=== PATIENT | male | born 1955 | race Caucasian/White ===

== ENCOUNTER 2018-03-04 14:55 | Inpatient (IN) | payer OTHER ==
[~2018-03-04] VITALS: Ht 175.3 cm; Wt 112.5 kg
[2018-03-04] MEDS ORDERED: SOD CHLORIDE 0.9% 1,000 ML IV STA (15:44)
[2018-03-04] MEDS ORDERED: ONDANSETRON 4 MG INJ IV STA (15:44)
[2018-03-04] MEDS ORDERED: KETOROLAC 15 MG INJ IV STA (15:44)
[2018-03-04] MEDS ORDERED: NIFE30TA23 PO (16:13)
[2018-03-04] MEDS ORDERED: OLME1TAB83 PO (16:13)
--- NOTE | 2018-03-04 17:10 | ERD ---
ER Documentation Chief Complaint Chief Complaint pt is bib self with c/o abd pain starting a few hrs ago HPI 62-year-old man complains of severe left lower quadrant and periumbilical abdominal pain beginning suddenly this afternoon and similar but worse to previous episode that occurred about 2 weeks ago. 2 weeks ago in his PMDs o ffice he was diagnosed with possible diverticulitis and was given a prescription for levofloxacin and metronidazole which he has been using as prescribed. He states shortly after starting antibiotics his pain resolved until this afternoon. He denies vomiting or diarrhea, no blood per rectum or melena, no chest pain or shortness of breath, no weight loss. ROS All systems reviewed and are negative except as per history of present illness. Medications Home Meds Reported Medications Olmesartan/Hydrochlorothiazide (Olmesartan-Hctz 40-12.5 mg Tab) 1 Each Tablet, 1 TAB PO DAILY 03/04/18 Nifedipine* (Nifedipine ER*) 30 Mg Tablet.sa, 30 MG PO DAILY 03/04/18 Allergies Allergies: Coded Allergies: No Known Allergy (Unverified , 03/04/18) PMhx/Soc Hypertension, obesity Hx Psychiatric Problems: No Hx Miscellaneous Medical Probl: No Hx Alcohol Use: No (OCCASSIONAL BEER) Hx Substance Use: No Hx Tobacco Use: No Smoking Status: Never smoker FmHx Family History: No diabetes Physical Exam Vitals Vital Signs Date Temp Pulse Resp B/P (MAP) Pulse Ox O2 O2 Flow FiO2 Time Delivery Rate 03/04/18 98.9 75 16 157/82 98 15:03 (107) Physical Exam GENERAL: Well-developed, well-nourished, well-hydrated, moderate discomfort, looks nontoxic in appearance HEENT: Moist mucous membranes, pink conjunctiva, no cervical spine tenderness or step-off deformities, no goiter, no jaundice or icterus, extraocular movements intact without pain. No submandibular induration, and no pharyngeal erythema NEURO: Alert and oriented 3, cranial nerves II through XII intact bilaterally, pupils equal round reactive to light, no focal deficits or facial asymmetry, sensation intact distally Strength 5/5 in upper and lower extremities bilaterally CARDIAC: Regular rate and rhythm, no murmurs rubs or gallops LUNGS: Clear bilaterally no wheezing crackles or stridor ABDOMEN: Tenderness over the left lower quadrant, no rigidity or rebound, positive voluntary guarding SKIN: Warm and dry to touch, no abrasions, contusions, or hematomas, no lacerations, no ecchymosis, no target lesions, and without ulcers EXTREMITIES: No clubbing cyanosis or edema, calves are bilaterally symmetrical, no Homans sign, no popliteal cord sign. Distal pulses equal and bilateral PSYCH: Normal affect without agitation or irritability Result Diagram: 03/04/18 1606 03/04/18 1606 Results 24 hrs Laboratory Tests Test 03/04/18 16:06 White Blood Count 10.0 10^3/ul Red Blood Count 4.94 10^6/ul Hemoglobin 13.5 g/dl Hematocrit 41.4 % Mean Corpuscular Volume 83.8 fl Mean Corpuscular Hemoglobin 27.3 pg Mean Corpuscular Hemoglobin Concent 32.6 g/dl Red Cell Distribution Width 14.1 % Platelet Count 198 10^3/UL Mean Platelet Volume 10.6 fl Immature Granulocytes % 0.300 % Neutrophils % 83.9 % Lymphocytes % 9.3 % Monocytes % 6.0 % Eosinophils % 0.4 % Basophils % 0.1 % Nucleated Red Blood Cells % 0.0 /100WBC Immature Granulocytes # 0.030 10^3/ul Neutrophils # 8.3 10^3/ul Lymphocytes # 0.9 10^3/ul Monocytes # 0.6 10^3/ul Eosinophils # 0.0 10^3/ul Basophils # 0.0 10^3/ul Nucleated Red Blood Cells # 0.0 10^3/ul Prothrombin Time 12.6 Sec Prothrombin Time Ratio 1.0 INR International Normalized Ratio 0.93 Activated Partial Thromboplast Time 32.6 Sec Sodium Level 136 mmol/L Potassium Level 4.2 mmol/L Chloride Level 101 mmol/L Carbon Dioxide Level 25 mmol/L Anion Gap 10 Blood Urea Nitrogen 17 mg/dl Creatinine 0.70 mg/dl Est Glomerular Filtrat Rate mL/min > 60 mL/min Glucose Level 119 mg/dl Calcium Level 9.2 mg/dl Total Bilirubin 0.5 mg/dl Direct Bilirubin 0.00 mg/dl Indirect Bilirubin 0.5 mg/dl Aspartate Amino Transf (AST/SGOT) 25 IU/L Alanine Aminotransferase (ALT/SGPT) 22 IU/L Alkaline Phosphatase 76 IU/L Total Protein 7.7 g/dl Albumin 4.4 g/dl Globulin 3.30 g/dl Albumin/Globulin Ratio 1.33 Lipase 169 U/L Current Medications Medications Dose Sig/Gosia Start Time Status Last (Trade) Ordered Route PRN Stop Time Admin Dose Reason Admin Sodium 1,000 ml @ Q1H STAT 03/04/18 DC 03/04/18 Chloride 1,000 mls/hr IV 15:44 16:25 03/04/18 16:43 Ondansetron 4 mg ONCE STAT 03/04/18 DC 03/04/18 HCl (Zofran IV 15:44 16:26 Inj) 03/04/18 15:45 Ketorolac 15 mg ONCE STAT 03/04/18 DC 03/04/18 Tromethamine IV 15:44 16:27 (Toradol) 03/04/18 15:45 Piperacillin 100 ml @ ONCE ONCE 03/04/18 Sod/ 200 mls/hr IVPB 17:30 Tazobactam 03/04/18 17:59 Sod Procedures/MDM IV line was established patient was placed on court recording monitor rhythm strip revealed a sinus rhythm at about 80 bpm with upright P and T waves. Patient was afebrile CT scan of the abdomen and pelvis was performed,IMPRESSION: Left lower quadrant diverticulitis with cluster extraluminal gas bubbles compatible with microperforation. No abscess. No obstruction. Fatty liver. I administered 1 L normal saline IV, Zofran 4 mg IV and Toradol 15 mg IV x1 for pain CBC and electrolytes are normal, liver function tests were normal, coagulation profile was normal. Patient was treated as an outpatient with Flagyl and levofloxacin but unfortunately had recurrence of severe left lower quadrant abdominal pain, CT scan of the abdomen and pelvis reveals acute diverticulitis. I administered Zosyn 3.375 g IV and also spoke to the surgeon on-call Dr. Blue Patient will be admitted to [facility] for continued medical management Departure Diagnosis: Primary Impression: Acute diverticulitis Condition: GERSON Collier MD Mar 04, 2018 17:10
[2018-03-04] MEDS ORDERED: PIPER-TAZO 3.375 GM IV (PMX) 100 ML IVPB ONE (17:30)
[2018-03-04] MEDS ORDERED: ALBUTEROL/IPRATROPIUM (NEB) 3 ML AMP HHN PRN (18:30)
[2018-03-04] MEDS ORDERED: ACETAMINOPHEN 325 MG TAB PO PRN (18:30)
[2018-03-04] MEDS ORDERED: hydrALAzine 20 MG INJ IV PRN (18:30)
[2018-03-04] MEDS ORDERED: ONDANSETRON 4 MG INJ IV PRN (18:30)
[2018-03-04] MEDS ORDERED: morphine 4 MG/ML VIAL IV PRN (18:30)
[2018-03-04] MEDS ORDERED: NITROGLYCERIN (SL) 0.4 MG TAB SL PRN (18:30)
[2018-03-04] MEDS ORDERED: NACL 0.9% 3 ML SYG IV SCH (18:30)
[2018-03-04] MEDS ORDERED: DOCUSATE SODIUM 100 MG CAP PO PRN (18:30)
[2018-03-04] MEDS ORDERED: LORAZEPAM 2 MG INJ IV PRN (18:30)
[2018-03-04] MEDS ORDERED: MAGNESIUM HYDROXIDE 30ML CUP PO PRN (18:30)
[2018-03-04 22:06] VITALS: Ht 175.3 cm; Wt 112.5 kg
[2018-03-04 22:08] VITALS: BP 144/72; PULSE 82; RESP 18
[2018-03-04] MEDS: SOD CHLORIDE 0.9% 1,000 ML IV SCH (22:40)
[2018-03-04] MEDS: PIPER-TAZO 3.375 GM IV (PMX) 100 ML IVPB SCH (23:27)
[2018-03-05 02:00] VITALS: BP 144/72; PULSE 99; RESP 17
[2018-03-05] MEDS: SOD CHLORIDE 0.9% 1,000 ML IV SCH ×3 (04:14→21:16)
--- NOTE | 2018-03-05 05:00 | NUR ---
Pt is alert and oriented x4. Pt is a new admission. Pt complains of pain but he is refusing pain medication. He is ambulating to the restroom, and he is aware he cannot drink or eat anything. Belongings checked and form signed. Vital signs stable. Antibiotics given as ordered. Will continue monitoring pt.
[2018-03-05] MEDS ORDERED: PANTOPRAZOLE (EC) 40 MG TAB PO SCH (06:00)
[2018-03-05] MEDS: PIPER-TAZO 3.375 GM IV (PMX) 100 ML IVPB SCH ×3 (06:42→18:13)
--- NOTE | 2018-03-05 07:14 | HP ---
Date/Time of Note Date/Time of Note DATE: 03/04/18 TIME: 22:00 Assessment/Plan VTE Prophylaxis Risk score (from [facility])>0 risk: 3 SCD applied (from [facility]): Yes Pharmacological prophylaxis: NA/contraindicated Pharm contraindication: other (Microperforation of the colon. Patient may go for surgery) Lines/Catheters IV Catheter Type (from [facility]): Peripheral IV Urinary Cath still in place: No Assessment/Plan Assessment/Plan 1. Diverticulitis with microperforation -Keep n.p.o. with IV fluid -Zosyn -Awaiting surgical eval 2. Hypertension: BP within acceptable range -PRN IV antihypertensives while n.p.o. 3. Obesity with a BMI of 37: Weight reduction advised Result Diagram: 03/05/185 03/05/18 0455 Results 24hrs Laboratory Tests Test 03/04/18 16:06 03/05/18 04:55 White Blood Count 10.0 13.3 #H Red Blood Count 4.94 4.68 L Hemoglobin 13.5 L 12.9 L Hematocrit 41.4 L 39.6 L Mean Corpuscular Volume 83.8 84.6 Mean Corpuscular Hemoglobin 27.3 L 27.6 L Mean Corpuscular Hemoglobin Concent 32.6 32.6 Red Cell Distribution Width 14.1 14.1 Platelet Count 198 183 Mean Platelet Volume 10.6 H 10.9 H Immature Granulocytes % 0.300 0.400 Neutrophils % 83.9 H 87.4 H Lymphocytes % 9.3 L 6.1 L Monocytes % 6.0 6.0 Eosinophils % 0.4 0.0 Basophils % 0.1 0.1 Nucleated Red Blood Cells % 0.0 0.0 Immature Granulocytes # 0.030 0.050 H Neutrophils # 8.3 H 11.6 H Lymphocytes # 0.9 0.8 Monocytes # 0.6 0.8 Eosinophils # 0.0 0.0 Basophils # 0.0 0.0 Nucleated Red Blood Cells # 0.0 0.0 Prothrombin Time 12.6 Prothrombin Time Ratio 1.0 INR International Normalized Ratio 0.93 Activated Partial Thromboplast Time 32.6 Sodium Level 136 136 Potassium Level 4.2 4.1 Chloride Level 101 103 Carbon Dioxide Level 25 22 Anion Gap 10 11 Blood Urea Nitrogen 17 17 Creatinine 0.70 0.79 Est Glomerular Filtrat Rate mL/min > 60 > 60 Glucose Level 119 108 Calcium Level 9.2 8.7 Total Bilirubin 0.5 Direct Bilirubin 0.00 Indirect Bilirubin 0.5 Aspartate Amino Transf (AST/SGOT) 25 Alanine Aminotransferase (ALT/SGPT) 22 Alkaline Phosphatase 76 Total Protein 7.7 Albumin 4.4 Globulin 3.30 H Albumin/Globulin Ratio 1.33 Lipase 169 Free Thyroxine 0.83 Hemoglobin A1c 5.7 Phosphorus Level 3.5 Magnesium Level 1.9 Triglycerides Level 88 Cholesterol Level 142 LDL Cholesterol, Calculated 75 HDL Cholesterol 49 Cholesterol/HDL Ratio 2.8 Thyroid Stimulating Hormone (TSH) 0.654 HPI/ROS Admit Date/Time Admit Date/Time Mar 04, 2018 at 17:24 Hx of Present Illness This is a 62-year-old male with a history of hypertension who presents the ER complaining of abdominal pain. Pain is left-sided and started about a month ago, January 28, 2018 to be exact. At that time he was diagnosed with diverticulitis and took Flagyl and Levaquin, which he finished over a week ago. Pain worsened a few hours prior to arrival to the ER and as such she decided to come for evaluation. He said that he has also occasionally been having pain in the periumbilical area but now it is only left-sided. He denied diarrhea/constipation. He only drinks alcohol occasionally. Head CT shows Left lower quadrant diverticulitis with cluster extraluminal gas bubbles compatible with microperforation. No abscess. No obstruction. PMH/Family/Social Past Medical History Medical History: other (See HPI) Medications Current Medications IV Flush (NS 3 ml) 3 ml PER PROTOCOL IV ; Start 03/04/18 at 18:30 Ondansetron HCl (Zofran Inj) 4 mg Q6H PRN IV NAUSEA AND/OR VOMITING; Start 03/04/18 at 18:30 Acetaminophen (Tylenol Tab) 650 mg Q6H PRN PO PAIN LEVEL 1-3 OR FEVER; Start 03/04/18 at 18:30 Acetaminophen/ Hydrocodone Bitart ([place] (5/325)) 1 tab Q6H PRN PO MODERATE PAIN LEVEL 4-6; Start 03/04/18 at 18:30 Morphine Sulfate (morphine) 2 mg Q4H PRN IV SEVERE PAIN LEVEL 7-10; Start 03/04/18 at 18:30 Docusate Sodium (Colace) 100 mg Q12H PRN PO CONSTIPATION Last administered on 03/05/18at 06:43; Admin Dose 100 MG; Start 03/04/18 at 18:30 Magnesium Hydroxide (Milk Of Mag) 30 ml DAILY PRN PO CONSTIPATION; Start 03/04/18 at 18:30 Pantoprazole (Protonix Tab) 40 mg DAILY@06 PO Last administered on 03/05/18at 06:42; Admin Dose 40 MG; Start 03/05/18 at 06:00 Lorazepam (Ativan) 0.5 mg Q6H PRN IV ANXIETY; Start 03/04/18 at 18:30 Sodium Chloride 1,000 ml @ 100 mls/hr Q10H IV Last administered on 03/04/18at 22:40; Admin Dose 100 MLS/HR; Start 03/04/18 at 18:14 Albuterol/ Ipratropium (Duoneb) 3 ml Q4H RESP THERAPY PRN HHN SHORTNESS OF BREATH; Start 03/04/18 at 18:30 Piperacillin Sod/ Tazobactam Sod 100 ml @ 200 mls/hr Q6 IVPB Last administered on 03/05/18at 06:42; Admin Dose 200 MLS/HR; Start 03/05/18 at 00:00 Hydralazine HCl (Apresoline) 10 mg Q6H PRN IV ELEVATED BLOOD PRESSURE; Start 03/04/18 at 18:30 Nitroglycerin (Nitroglycerin (Sl Tab) 0.4 Mg) 1 tab Q5M PRN SL ANGINA; Start 03/04/18 at 18:30 Nifedipine (Procardia Xl) 30 mg DAILY PO ; Start 03/05/18 at 09:00 Losartan Potassium (Cozaar) 100 mg DAILY PO ; Start 03/05/18 at 09:00 Hydrochlorothiazide (Hydrochlorothiazide) 12.5 mg DAILY PO ; Start 03/05/18 at 09:00 Coded Allergies: No Known Allergy (Unverified , 03/04/18) Past Surgical History Past Surgical Hx: other (See HPI) Family History Significant Family History: no pertinent family hx Social History Alcohol Use: occasionally Smoking Status: Never smoker Drug Use: none Exam/Review of Systems Vital Signs Vitals Vital Signs Date Temp Pulse Resp B/P (MAP) Pulse Ox O2 O2 Flow FiO2 Time Delivery Rate 03/05/18 99.5 04:11 03/05/18 99 17 144/72 94 02:00 (96) 03/04/18 Room Air 21:30 Intake and Output 03/04/18 03/04/18 03/05/18 1515:00 23:00 07:00 IntakeIntake Total 1000 ml 700 ml BalanceBalance 1000 ml 700 ml Exam Constitutional: alert, oriented, well developed Head: normocephalic, atraumatic Respiratory: clear to auscultation, normal air movement Cardiovascular: regular rate and rhythm, nl pulses Gastrointestinal: soft, tender Extremities: normal pulses VIKKI MARQUIS MD Mar 05, 2018 07:14
[2018-03-05 08:09] VITALS: BP 123/69; PULSE 97; RESP 16
--- NOTE | 2018-03-05 08:51 | CONS ---
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 If continues to increase, would rescan. However, if improves clinically and white count normalizes, no reason to rescan This should resolve with conservative therapy Result Diagram: 03/05/18 0455 03/05/18 0455 Results 24hrs Laboratory Tests Test 03/04/18 16:06 03/05/18 04:55 White Blood Count 10.0 13.3 #H Red Blood Count 4.94 4.68 L Hemoglobin 13.5 L 12.9 L Hematocrit 41.4 L 39.6 L Mean Corpuscular Volume 83.8 84.6 Mean Corpuscular Hemoglobin 27.3 L 27.6 L Mean Corpuscular Hemoglobin Concent 32.6 32.6 Red Cell Distribution Width 14.1 14.1 Platelet Count 198 183 Mean Platelet Volume 10.6 H 10.9 H Immature Granulocytes % 0.300 0.400 Neutrophils % 83.9 H 87.4 H Lymphocytes % 9.3 L 6.1 L Monocytes % 6.0 6.0 Eosinophils % 0.4 0.0 Basophils % 0.1 0.1 Nucleated Red Blood Cells % 0.0 0.0 Immature Granulocytes # 0.030 0.050 H Neutrophils # 8.3 H 11.6 H Lymphocytes # 0.9 0.8 Monocytes # 0.6 0.8 Eosinophils # 0.0 0.0 Basophils # 0.0 0.0 Nucleated Red Blood Cells # 0.0 0.0 Prothrombin Time 12.6 Prothrombin Time Ratio 1.0 INR International Normalized Ratio 0.93 Activated Partial Thromboplast Time 32.6 Sodium Level 136 136 Potassium Level 4.2 4.1 Chloride Level 101 103 Carbon Dioxide Level 25 22 Anion Gap 10 11 Blood Urea Nitrogen 17 17 Creatinine 0.70 0.79 Est Glomerular Filtrat Rate mL/min > 60 > 60 Glucose Level 119 108 Calcium Level 9.2 8.7 Total Bilirubin 0.5 Direct Bilirubin 0.00 Indirect Bilirubin 0.5 Aspartate Amino Transf (AST/SGOT) 25 Alanine Aminotransferase (ALT/SGPT) 22 Alkaline Phosphatase 76 Total Protein 7.7 Albumin 4.4 Globulin 3.30 H Albumin/Globulin Ratio 1.33 Lipase 169 Free Thyroxine 0.83 Hemoglobin A1c 5.7 Phosphorus Level 3.5 Magnesium Level 1.9 Triglycerides Level 88 Cholesterol Level 142 LDL Cholesterol, Calculated 75 HDL Cholesterol 49 Cholesterol/HDL Ratio 2.8 Thyroid Stimulating Hormone (TSH) 0.654 Consultation Date/Type/Reason Admit Date/Time Mar 04, 2018 at 17:24 Hx of Present Illness The patient is a 62-year-old male who presented to the ER yesterday with acute onset of left lower quadrant pain. He had similar symptoms in January. At that time, he was seen by his PMD and was started on oral antibiotics. He comp letely resolved. However, he had a meal yesterday and developed significant left lower quadrant pain once again. He denies fevers or chills. He denies nausea or emesis. He denies diarrhea or constipation. He states that his pain is better this morning. 14 point review of systems was performed. Past Medical History Medical History: other (See HPI) Medications Current Medications IV Flush (NS 3 ml) 3 ml PER PROTOCOL IV ; Start 03/04/18 at 18:30 Ondansetron HCl (Zofran Inj) 4 mg Q6H PRN IV NAUSEA AND/OR VOMITING; Start 03/04/18 at 18:30 Acetaminophen/ Hydrocodone Bitart ([place] (5/325)) 1 tab Q6H PRN PO MODERATE PAIN LEVEL 4-6; Start 03/04/18 at 18:30 Morphine Sulfate (morphine) 2 mg Q4H PRN IV SEVERE PAIN LEVEL 7-10; Start 03/04/18 at 18:30 Lorazepam (Ativan) 0.5 mg Q6H PRN IV ANXIETY; Start 03/04/18 at 18:30 Sodium Chloride 1,000 ml @ 100 mls/hr Q10H IV Last administered on 03/04/18at 22:40; Admin Dose 100 MLS/HR; Start 03/04/18 at 18:14 Albuterol/ Ipratropium (Duoneb) 3 ml Q4H RESP THERAPY PRN HHN SHORTNESS OF BREATH; Start 03/04/18 at 18:30 Piperacillin Sod/ Tazobactam Sod 100 ml @ 200 mls/hr Q6 IVPB Last administered on 03/05/18at 06:42; Admin Dose 200 MLS/HR; Start 03/05/18 at 00:00 Hydralazine HCl (Apresoline) 10 mg Q6H PRN IV ELEVATED BLOOD PRESSURE; Start 03/04/18 at 18:30 Hydrochlorothiazide (Hydrochlorothiazide) 12.5 mg DAILY PO ; Start 03/05/18 at 09:00 Pantoprazole (Protonix Iv) 40 mg DAILY@06 IV ; Start 03/06/18 at 06:00 Allergies: Coded Allergies: No Known Allergy (Unverified , 03/04/18) Past Surgical History Past Surgical Hx: no surgical history, other (See HPI) Family History Significant Family History: no pertinent family hx Social History Alcohol Use: occasionally Smoking Status: Never smoker Drug Use: none Exam/Review of Systems Vital Signs Vitals Vital Signs Date Temp Pulse Resp B/P (MAP) Pulse Ox O2 O2 Flow FiO2 Time Delivery Rate 03/05/18 99.8 97 16 123/69 94 08:09 (87) 03/04/18 Room Air 21:30 Intake and Output 03/04/18 03/04/18 03/05/18 1414:59 22:59 06:59 IntakeIntake Total 1000 ml 700 ml BalanceBalance 1000 ml 700 ml Exam Constitutional: alert, oriented, well developed Psych: no complaints, nl mood/affect Head: normocephalic Eyes: nl conjunctiva ENMT: nl external ears & nose, nl lips & teeth, nl nasal mucosa & septum Neck: non-tender Respiratory: clear to auscultation, normal air movement Cardiovascular: regular rate and rhythm, nl pulses Gastrointestinal: soft, other (Nondistended but left lower quadrant tenderness is present) Extremities: normal pulses Neurological: CURRICULUM ASSISTANT II-XII intact, nl mental status, nl speech, nl strength Skin: nl turgor, rash or lesions Lymph: nl lymph nodes Medications Medications Current Medications IV Flush (NS 3 ml) 3 ml PER PROTOCOL IV ; Start 03/04/18 at 18:30 Ondansetron HCl (Zofran Inj) 4 mg Q6H PRN IV NAUSEA AND/OR VOMITING; Start 03/04/18 at 18:30 Acetaminophen/ Hydrocodone Bitart ([place] (5/325)) 1 tab Q6H PRN PO MODERATE PAIN LEVEL 4-6; Start 03/04/18 at 18:30 Morphine Sulfate (morphine) 2 mg Q4H PRN IV SEVERE PAIN LEVEL 7-10; Start 03/04/18 at 18:30 Lorazepam (Ativan) 0.5 mg Q6H PRN IV ANXIETY; Start 03/04/18 at 18:30 Sodium Chloride 1,000 ml @ 100 mls/hr Q10H IV Last administered on 03/04/18at 22:40; Admin Dose 100 MLS/HR; Start 03/04/18 at 18:14 Albuterol/ Ipratropium (Duoneb) 3 ml Q4H RESP THERAPY PRN HHN SHORTNESS OF BREATH; Start 03/04/18 at 18:30 Piperacillin Sod/ Tazobactam Sod 100 ml @ 200 mls/hr Q6 IVPB Last administered on 03/05/18at 06:42; Admin Dose 200 MLS/HR; Start 03/05/18 at 00:00 Hydralazine HCl (Apresoline) 10 mg Q6H PRN IV ELEVATED BLOOD PRESSURE; Start 03/04/18 at 18:30 Hydrochlorothiazide (Hydrochlorothiazide) 12.5 mg DAILY PO ; Start 03/05/18 at 09:00 Pantoprazole (Protonix Iv) 40 mg DAILY@06 IV ; Start 03/06/18 at 06:00 Imaging Imaging Patient: KEVIN STORM : 1955 Age: 62 Sex: M MR #: [id number] DOS: 03/04/18 1544 Ordering MD: GERSON ASHFORD MD Location: E/R Room/Bed: PROCEDURE: CT abdomen and pelvis without contrast. CLINICAL INDICATION: Abdominal Pain TECHNIQUE: CT scan of the abdomen and pelvis without contrast was performed and is reconstructed at 2.5 mm contiguous axial intervals from the dome of the diaphragm to the inferior pubic rami.. The patient was scanned without intravenous contrast. Sagittal and coronal reformatted images were obtained from the axial source images. The calculated radiation dose measures 1515 mGy centimeters. The CTDI measures 22 mGy. Individualized dose optimization technique was used for the performance of this exam. This included 1. Automated exposure control. 2. Adjustment of the mA and / or kV according to the patient's size. 3. Use of iterative reconstructed technique. COMPARISON: None. FINDINGS: The lung bases are clear of any infiltrate or nodule. No effusion is seen. The liver is of normal size and contour with no mass or ductal dilatation. There is fatty infiltration. No gallstones are visualized. No splenic, adrenal or pancreatic abnormalities present. Kidneys are of normal size and contour. No hydronephrosis, calculus or masses seen. Ureters are of normal course and caliber with no stone. No bladder mass or stone is present. Prostate and seminal vesicles are normal. There is no aneurysm. No adenopathy is present. No bowel mass or obstruction is present. The appendix is normal. There is diverticulosis. Noted is pericolic stranding surrounding the junction of the descending colon and the sigmoid colon compatible with diverticulitis. There is a cluster of extraluminal gas bubbles anterior and lateral to the segment. No discrete abscess is present. No ascites or gross pneumoperitoneum is seen. pneumoperitoneum is visualized. Mild senescent degenerative changes are noted in the lumbar spine. IMPRESSION: Left lower quadrant diverticulitis with cluster extraluminal gas bubbles compatible with microperforation. No abscess. No obstruction. Fatty liver. .Andrea Pham MD, MD Date Time Electronically viewed and signed by .Andrea Pham MD, MD on 03/04/2018 16:46 .A/ CC: GERSON ASHFORD MD [id number] HERBER CARUSO MD Mar 05, 2018 08:51
[2018-03-05] MEDS: HYDROCHLOROTHIAZIDE 12.5 MG CAP PO SCH (08:57)
[2018-03-05] MEDS ORDERED: NIFEdipine (XL) 30 MG TAB PO SCH (09:00)
[2018-03-05] MEDS ORDERED: LOSARTAN 50 MG TAB PO SCH (09:00)
--- NOTE | 2018-03-05 12:17 | PN ---
Date/Time of Note Date/Time of Note DATE: 03/05/18 TIME: 12:09 Assessment/Plan VTE Prophylaxis Risk score (from Ns)>0 risk: 4 SCD applied (from Ns): Yes SCD contraindicated: low risk/ambulating Pharmacological prophylaxis: heparin Lines/Catheters IV C[facility]ter Type (from [facility]): Peripheral IV Urinary Cath still in place: No Assessment/Plan Problems: (1) Diverticulitis of large intestine with perforation without bleeding Status: Acute Comment: Is actually subacute he had symptoms treated by his primary care physician Dr. Kiki Méndez 1 month ago. He is on antibiotics now we will trend his white count and recheck his CT scan in the morning. Hopefully this will settle down and can be managed conservatively and not require immediate surgical intervention. (2) Essential hypertension Status: Chronic Comment: maintain drug therapy (3) Obesity Status: Chronic Comment: Calorie restriction diet Qualifiers: Obesity type: due to excess calories Obesity classification: adult class 2 (BMI 35 - 39.9) Serious obesity comorbidity presence: without serious comorbidity Body mass index: BMI 35.0-35.9 Qualified Codes: E66.09 - Other obesity due to excess calories; Z68.35 - Body mass index (BMI) 35.0-35.9, adult Result Diagram: 03/05/18 0455 03/05/18 0455 Results 24hrs Laboratory Tests Test 03/04/18 16:06 03/05/18 04:55 White Blood Count 10.0 13.3 #H Red Blood Count 4.94 4.68 L Hemoglobin 13.5 L 12.9 L Hematocrit 41.4 L 39.6 L Mean Corpuscular Volume 83.8 84.6 Mean Corpuscular Hemoglobin 27.3 L 27.6 L Mean Corpuscular Hemoglobin Concent 32.6 32.6 Red Cell Distribution Width 14.1 14.1 Platelet Count 198 183 Mean Platelet Volume 10.6 H 10.9 H Immature Granulocytes % 0.300 0.400 Neutrophils % 83.9 H 87.4 H Lymphocytes % 9.3 L 6.1 L Monocytes % 6.0 6.0 Eosinophils % 0.4 0.0 Basophils % 0.1 0.1 Nucleated Red Blood Cells % 0.0 0.0 Immature Granulocytes # 0.030 0.050 H Neutrophils # 8.3 H 11.6 H Lymphocytes # 0.9 0.8 Monocytes # 0.6 0.8 Eosinophils # 0.0 0.0 Basophils # 0.0 0.0 Nucleated Red Blood Cells # 0.0 0.0 Prothrombin Time 12.6 Prothrombin Time Ratio 1.0 INR International Normalized Ratio 0.93 Activated Partial Thromboplast Time 32.6 Sodium Level 136 136 Potassium Level 4.2 4.1 Chloride Level 101 103 Carbon Dioxide Level 25 22 Anion Gap 10 11 Blood Urea Nitrogen 17 17 Creatinine 0.70 0.79 Est Glomerular Filtrat Rate mL/min > 60 > 60 Glucose Level 119 108 Calcium Level 9.2 8.7 Total Bilirubin 0.5 Direct Bilirubin 0.00 Indirect Bilirubin 0.5 Aspartate Amino Transf (AST/SGOT) 25 Alanine Aminotransferase (ALT/SGPT) 22 Alkaline Phosphatase 76 Total Protein 7.7 Albumin 4.4 Globulin 3.30 H Albumin/Globulin Ratio 1.33 Lipase 169 Free Thyroxine 0.83 Hemoglobin A1c 5.7 Phosphorus Level 3.5 Magnesium Level 1.9 Triglycerides Level 88 Cholesterol Level 142 LDL Cholesterol, Calculated 75 HDL Cholesterol 49 Cholesterol/HDL Ratio 2.8 Thyroid Stimulating Hormone (TSH) 0.654 Subjective 24 Hr Interval Summary Free Text/Dictation Charming gentleman sitting in bed watching football. He reports he is feeling clinically better Constitutional: no complaints Respiratory: no complaints Cardiovascular: no complaints Gastrointestinal: pain Exam/Review of Systems Vital Signs Vitals Vital Signs Date Temp Pulse Resp B/P (MAP) Pulse Ox O2 O2 Flow FiO2 Time Delivery Rate 03/05/18 99.8 97 16 123/69 94 08:09 (87) 03/04/18 Room Air 21:30 Intake and Output 03/04/18 03/04/18 03/05/18 1414:59 22:59 06:59 IntakeIntake Total 1000 ml 700 ml BalanceBalance 1000 ml 700 ml Exam Constitutional: alert, oriented Respiratory: clear to auscultation, normal air movement Cardiovascular: regular rate and rhythm, nl pulses Gastrointestinal: soft, tender (Left lower quadrant) Medications Medications Current Medications IV Flush (NS 3 ml) 3 ml PER PROTOCOL IV ; Start 03/04/18 at 18:30 Ondansetron HCl (Zofran Inj) 4 mg Q6H PRN IV NAUSEA AND/OR VOMITING; Start 03/04/18 at 18:30 Acetaminophen/ Hydrocodone Bitart ([place] (5/325)) 1 tab Q6H PRN PO MODERATE PAIN LEVEL 4-6; Start 03/04/18 at 18:30 Morphine Sulfate (morphine) 2 mg Q4H PRN IV SEVERE PAIN LEVEL 7-10; Start 03/04/18 at 18:30 Lorazepam (Ativan) 0.5 mg Q6H PRN IV ANXIETY; Start 03/04/18 at 18:30 Sodium Chloride 1,000 ml @ 100 mls/hr Q10H IV Last administered on 03/05/18at 10:44; Admin Dose 100 MLS/HR; Start 03/04/18 at 18:14 Albuterol/ Ipratropium (Duoneb) 3 ml Q4H RESP THERAPY PRN HHN SHORTNESS OF BREATH; Start 03/04/18 at 18:30 Piperacillin Sod/ Tazobactam Sod 100 ml @ 200 mls/hr Q6 IVPB Last administered on 03/05/18at 06:42; Admin Dose 200 MLS/HR; Start 03/05/18 at 00:00 Hydralazine HCl (Apresoline) 10 mg Q6H PRN IV ELEVATED BLOOD PRESSURE; Start 03/04/18 at 18:30 Hydrochlorothiazide (Hydrochlorothiazide) 12.5 mg DAILY PO Last administered on 03/05/18at 08:57; Admin Dose 12.5 MG; Start 03/05/18 at 09:00 Pantoprazole (Protonix Iv) 40 mg DAILY@06 IV ; Start 03/06/18 at 06:00 BUZZ KHAN MD Mar 05, 2018 12:17
[2018-03-05] MEDS ORDERED: IOHEXOL 14.3 MG(I)/ML (ADULT) BTL PO ONE (12:30)
[2018-03-05 14:33] VITALS: BP 131/60; PULSE 90; RESP 18
--- NOTE | 2018-03-05 18:30 | NUR ---
Patient with stable vitals throughout shift. Running low grade fevers but managed with cooling measures. No c/o chills, body aches, N/V, etc. Pt c/o ongoing pain in abd but says tolerable and not needing pain medication. To have repeat CT tomorrow. Will continue to monitor and endorse to next shift.
[2018-03-05 20:00] VITALS: BP 135/70; PULSE 89; RESP 18
[2018-03-06] MEDS: SOD CHLORIDE 0.9% 1,000 ML IV SCH ×3 (00:14→20:40)
[2018-03-06] MEDS: PIPER-TAZO 3.375 GM IV (PMX) 100 ML IVPB SCH ×3 (00:25→12:08)
[2018-03-06] MEDS: HYDROCODONE/APAP (5/325) TAB PO PRN ×2 (00:29→15:11)
[2018-03-06 02:00] VITALS: BP 111/69; PULSE 82; RESP 15
[2018-03-06] MEDS: PANTOPRAZOLE 40 MG INJ IV SCH (06:18)
--- NOTE | 2018-03-06 06:29 | NUR ---
Pt is alert and oriented x4. He complained of pain; [place] given as ordered. Vital signs stable; no fevers throughout the night. He is ambulating to the restroom, and he is aware he cannot drink or eat anything. Vital signs stable. Antibiotics given as ordered as well. No other acute events overnight. CT scan to be done this morning. Will continue monitoring pt.
[2018-03-06] MEDS: HYDROCHLOROTHIAZIDE 12.5 MG CAP PO SCH (08:25)
[2018-03-06 08:42] VITALS: BP 124/64; PULSE 86; RESP 18
--- NOTE | 2018-03-06 09:00 | NUR ---
PT EVALUATION NOTE: Patient is a 62 year old male admitted to [facility] after presenting to the ER on 03/04/18 complaining of abdominal pain. PMH: HTN, obesity PLOF: Patient lives with his family in a house. Prior to hospitalization, patient was independent with household and community ambulation without an assistive device and was able to perform ADLs independently. 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 CLOF: Aisha PAINTING cleared patient for PT evaluation. Received patient sitting up in bed, denies pain. Patient educated in safety awareness, fall prevention and purpose of PT evaluation. Patient able to demonstrate independent bed mobility and transfers without an assistive device. Patient able to ambulate 300 feet independently without an assistive device with steady, stable gait. Patient denied dizziness during ambulation. Patient returned to bed after ambulation, all needs met, call light within reach, no signs of distress. Asiha PAINTING notified of patient's status at the end of the session. PT RECOMMENDATION: Skilled PT intervention is not indicated as patient is independent with all functional mobility (bed mobility, transfers and ambulation without an assistive device). Anticipate discharge home with family once cleared by MD, no DME needed. Patient discharged from PT, Aisha PAINTING notified. Patient is cleared to ambulate with nursing staff.
[2018-03-06] MEDS ORDERED: SOD CHLORIDE 0.9% 100 ML ONE (11:37)
[2018-03-06] MEDS ORDERED: IOHEXOL 300MG/ML 150 ML BTL ONE (11:37)
--- NOTE | 2018-03-06 11:56 | NUR ---
Procedure Ordered: CT ABD/PEL W/CONTRAST Reason for Exam Today:DIVERTICULITIS WITH MICROPERFORATION Previous Exams: Allergies:NKDA Current Medications Taken: Glucophage ( ) Metformin ( ) Previous reaction to contrast media: Yes ( ) No ( X) : Yes ( ) No (X ) Asthma: Yes ( ) No ( X) Diabetes: Yes ( ) No (X ) Myeloma: Yes ( ) No ( X) Heart Disease: Yes (X ) No ( ) Cardiac Disease: Yes (X ) No ( ) Kidney Disease: Yes ( ) No ( X) Vascular Disease: Yes ( ) No ( X) Patient Teaching done: Yes ( ) No ( ) Boilers And Pressure Vessels Inspector Used: Yes ( X) No ( ) Name of Boilers And Pressure Vessels Inspector: Language Used: As part of the test requested by your doctor, contrast media may be injected into your vein while the x-rays are being taken. Occasionally, reactions from IV contrast may occur. The physician and staff of this hospital are trained to treat these reactions. Select the type of Contrast that will be given to patient: Isovue 300 ( ) Isovue 370 ( ) Visipaque ( ) Cystografin ( ) OMNIPAQUE 300 (X) Gastrographin (X ) Redi-cat ( ) Volumen ( ) Amount of contrast to be given: 100CC IV (X ) PO ( ) Date given:03/06/18 Lab Values: BUN: 17 Creatinine:0.79 Reason why contrast cannot be given: Location of patient pre-procedure:[facility]248 Location of patient post procedure:[facility]248 PT TOLERATED IV CONTRAST INJECTION WELL
[2018-03-06 15:21] VITALS: BP 132/70; PULSE 83; RESP 18
--- NOTE | 2018-03-06 16:19 | PN ---
Date/Time of Note Date/Time of Note DATE: 03/06/18 TIME: 16:18 Assessment/Plan VTE Prophylaxis Risk score (from Ns)>0 risk: 4 SCD applied (from Ns): Yes Pharmacological prophylaxis: NA/contraindicated Pharm contraindication: low risk/ambulating Lines/Catheters IV [facility]from [facility]): Peripheral IV Urinary Cath still in place: No Assessment/Plan Hospital Course SUBJECTIVE: Had abdominal pain earlier today. Denies any abdominal pain at this time. OBJECTIVE: Physical Exam General: Obese, 62 year-old male lying in bed in no apparent distress. HEENT: Normocephalic, atraumatic. Eyes: Anicteric sclerae, conjunctivae clear. ENT: Nasal septum midline, oral mucosa moist. Neck supple, no JVD noticed. Respiratory: Bilaterally clear breath sounds. No use of accessory muscles of respiration. No adventitious breath sounds. Cardiovascular: S1, S2 heard. Regular rate and rhythm. Abdomen: Left lower quadrant tenderness. Bowel sounds positive in all 4 quadrants. Genitourinary: Deferred. Extremities: No cyanosis, no clubbing, no edema. Peripheral pulses palpable. Neurologic: Cranial nerves II through XII grossly intact. The patient is awake, alert, and oriented. Skin: Normal skin turgor. No skin rashes. Labs & Vitals per chart ASSESSMENT & PLAN 62-year-old male with comorbidities including hypertension and obesity who came to the emergency room with chief complaint of abdominal pain with CT scan of the abdomen and pelvis showing left lower quadrant diverticulitis with extra luminal gas bubbles compatible with microperforation. The patient was admitted to inpatient setting for further treatment and evaluation. 1. Acute diverticulitis with microperforation. -Continue antimicrobials including coverage for anaerobes. -Status post evaluation by general surgery. -Continue conservative management. 2. Essential hypertension. -Continue antihypertensives 3. Obesity. -BMI 36 kg/m. -Low calorie diet. 4. Fluids. -N.p.o. -Continue IV fluids. 5. DVT prophylaxis -Bilateral SCDs. 6. Plan. -Continue antibiotics. -Changed to carbapenem on 03/06/2018. -Continue pain control. -Continue n.p.o. The patient was in collaboration with Dr. Sanchez. Plan of care was explained to the patient. Result Diagram: 03/06/1851103/06/18 0512 Results 24hrs Laboratory Tests Test 1/21/19 05:12 White Blood Count 10.6 # Red Blood Count 4.46 L Hemoglobin 12.5 L Hematocrit 38.0 L Mean Corpuscular Volume 85.2 Mean Corpuscular Hemoglobin 28.0 L Mean Corpuscular Hemoglobin Concent 32.9 Red Cell Distribution Width 14.2 Platelet Count 167 Mean Platelet Volume 10.8 H Immature Granulocytes % 0.400 Neutrophils % 77.6 H Lymphocytes % 13.1 L Monocytes % 8.3 Eosinophils % 0.5 Basophils % 0.1 Nucleated Red Blood Cells % 0.0 Immature Granulocytes # 0.040 H Neutrophils # 8.2 H Lymphocytes # 1.4 Monocytes # 0.9 Eosinophils # 0.1 Basophils # 0.0 Nucleated Red Blood Cells # 0.0 Sodium Level 134 L Potassium Level 3.7 Chloride Level 101 Carbon Dioxide Level 22 Anion Gap 11 Blood Urea Nitrogen 15 Creatinine 0.76 Est Glomerular Filtrat Rate mL/min > 60 Glucose Level 83 Calcium Level 8.5 Exam/Review of Systems Vital Signs Vitals Vital Signs Date Temp Pulse Resp B/P (MAP) Pulse Ox O2 O2 Flow FiO2 Time Delivery Rate 03/06/18 98.9 83 18 132/70 94 Room Air 15:21 (90) Intake and Output 03/05/18 03/05/18 03/06/18 1515:00 23:00 07:00 IntakeIntake Total 600 ml 1200 ml 900 ml BalanceBalance 600 ml 1200 ml 900 ml Medications Medications Current Medications IV Flush (NS 3 ml) 3 ml PER PROTOCOL IV ; Start 03/04/18 at 18:30 Ondansetron HCl (Zofran Inj) 4 mg Q6H PRN IV NAUSEA AND/OR VOMITING; Start 03/04/18 at 18:30 Acetaminophen/ Hydrocodone Bitart ([place] (5/325)) 1 tab Q6H PRN PO MODERATE PAIN LEVEL 4-6 Last administered on 03/06/18at 15:11; Admin Dose 1 TAB; Start 03/04/18 at 18:30 Morphine Sulfate (morphine) 2 mg Q4H PRN IV SEVERE PAIN LEVEL 7-10; Start 03/04/18 at 18:30 Lorazepam (Ativan) 0.5 mg Q6H PRN IV ANXIETY; Start 03/04/18 at 18:30 Sodium Chloride 1,000 ml @ 100 mls/hr Q10H IV Last administered on 03/06/18at 09:11; Admin Dose 100 MLS/HR; Start 03/04/18 at 18:14 Albuterol/ Ipratropium (Duoneb) 3 ml Q4H RESP THERAPY PRN HHN SHORTNESS OF BREATH; Start 03/04/18 at 18:30 Hydralazine HCl (Apresoline) 10 mg Q6H PRN IV ELEVATED BLOOD PRESSURE; Start 03/04/18 at 18:30 Hydrochlorothiazide (Hydrochlorothiazide) 12.5 mg DAILY PO Last administered on 03/06/18at 08:25; Admin Dose 12.5 MG; Start 03/05/18 at 09:00 Pantoprazole (Protonix Iv) 40 mg DAILY@06 IV Last administered on 03/06/18at 06:18; Admin Dose 40 MG; Start 03/06/18 at 06:00 Meropenem/Sodium Chloride 50 ml @ 100 mls/hr Q8 IVPB ; Start 03/06/18 at 16:00 SHON BERRIOS NP Mar 06, 2018 16:19
[2018-03-06] MEDS: MEROPENEM 1 GM/50ML(PMX) 50 ML IVPB SCH ×2 (16:29→22:37)
--- NOTE | 2018-03-06 18:11 | NUR ---
Pt with stable vitals throughout shift. Had repeat CT scan done and c/o abd pain 07/24 after consuming PO contrast but reports symptoms improved after PRN norco given. Remains NPO. Ambulating throughout the day. Will continue to monitor and endorse to next shift
[2018-03-06 20:00] VITALS: BP 128/66; PULSE 81; RESP 18
[2018-03-07 02:00] VITALS: BP 126/66; PULSE 78; RESP 18
--- NOTE | 2018-03-07 05:52 | PN ---
Date/Time of Note Date/Time of Note DATE: 03/07/18 TIME: 05:52 Assessment/Plan VTE Prophylaxis Risk score (from Ns)>0 risk: 6 SCD applied (from Ns): Yes Pharmacological prophylaxis: NA/contraindicated Pharm contraindication: low risk/ambulating Lines/Catheters IV Catheter Type (from [facility]): Peripheral IV Urinary Cath still in place: No Assessment/Plan Hospital Course SUBJECTIVE: Denies any abdominal pain at this time. OBJECTIVE: Physical Exam General: Obese, 62 year-old male lying in bed in no apparent distress. HEENT: Normocephalic, atraumatic. Eyes: Anicteric sclerae, conjunctivae clear. ENT: Nasal septum midline, oral mucosa moist. Neck supple, no JVD noticed. Respiratory: Bilaterally clear breath sounds. No use of accessory muscles of respiration. No adventitious breath sounds. Cardiovascular: S1, S2 heard. Regular rate and rhythm. Abdomen: Left lower quadrant tenderness. Bowel sounds positive in all 4 quadrants. Genitourinary: Deferred. Extremities: No cyanosis, no clubbing, no edema. Peripheral pulses palpable. Neurologic: Cranial nerves II through XII grossly intact. The patient is awake, alert, and oriented. Skin: Normal skin turgor. No skin rashes. Labs & Vitals per chart ASSESSMENT & PLAN 62-year-old male with comorbidities including hypertension and obesity who came to the emergency room with chief complaint of abdominal pain with CT scan of the abdomen and pelvis showing left lower quadrant diverticulitis with extra luminal gas bubbles compatible with microperforation. The patient was admitted to inpatient setting for further treatment and evaluation. 1. Acute diverticulitis with microperforation. -Continue antimicrobials including coverage for anaerobes. -Status post evaluation by general surgery. -Continue conservative management. 2. Essential hypertension. -Continue antihypertensives 3. Obesity. -BMI 36 kg/m. -Low calorie diet. 4. Fluids. -N.p.o. -Continue IV fluids. 5. DVT prophylaxis -Bilateral SCDs. 6. Plan. -Continue antibiotics. -Changed to carbapenem on 03/06/2018. -Continue pain control. -Continue n.p.o. The patient was in collaboration with Dr. Sanchez. Plan of care was explained to the patient. Result Diagram: 03/06/1851103/06/18511 Exam/Review of Systems Vital Signs Vitals Vital Signs Date Temp Pulse Resp B/P (MAP) Pulse Ox O2 O2 Flow FiO2 Time Delivery Rate 03/07/18 98.9 78 18 126/66 93 02:00 (86) 03/06/18 Room Air 15:21 Intake and Output 03/06/18 03/06/18 03/07/18 1515:00 23:00 07:00 IntakeIntake Total 300 ml 1050 ml 850 ml BalanceBalance 300 ml 1050 ml 850 ml Medications Medications Current Medications IV Flush (NS 3 ml) 3 ml PER PROTOCOL IV ; Start 03/04/18 at 18:30 Ondansetron HCl (Zofran Inj) 4 mg Q6H PRN IV NAUSEA AND/OR VOMITING; Start at 18:30 Acetaminophen/ Hydrocodone Bitart ([place] (5/325)) 1 tab Q6H PRN PO MODERATE PAIN LEVEL 4-6 Last administered on 03/06/18at 15:11; Admin Dose 1 TAB; Start 03/04/18 at 18:30 Morphine Sulfate (morphine) 2 mg Q4H PRN IV SEVERE PAIN LEVEL 7-10; Start 03/04/18 at 18:30 Lorazepam (Ativan) 0.5 mg Q6H PRN IV ANXIETY; Start 03/04/18 at 18:30 Sodium Chloride 1,000 ml @ 100 mls/hr Q10H IV Last administered on 03/06/18at 20:40; Admin Dose 100 MLS/HR; Start 03/04/18 at 18:14 Albuterol/ Ipratropium (Duoneb) 3 ml Q4H RESP THERAPY PRN HHN SHORTNESS OF BREATH; Start 03/04/18 at 18:30 Hydralazine HCl (Apresoline) 10 mg Q6H PRN IV ELEVATED BLOOD PRESSURE; Start 03/04/18 at 18:30 Hydrochlorothiazide (Hydrochlorothiazide) 12.5 mg DAILY PO Last administered on 03/06/18at 08:25; Admin Dose 12.5 MG; Start 03/05/18 at 09:00 Pantoprazole (Protonix Iv) 40 mg DAILY@06 IV Last administered on 03/06/18at 06:18; Admin Dose 40 MG; Start 03/06/18 at 06:00 Meropenem/Sodium Chloride 50 ml @ 100 mls/hr Q8 IVPB Last administered on 03/06/18at 22:37; Admin Dose 100 MLS/HR; Start 03/06/18 at 16:00 SHON BERRIOS NP Mar 07, 2018 05:52
[2018-03-07] MEDS: MEROPENEM 1 GM/50ML(PMX) 50 ML IVPB SCH ×3 (06:00→21:23)
[2018-03-07] MEDS: PANTOPRAZOLE 40 MG INJ IV SCH (06:00)
--- NOTE | 2018-03-07 06:31 | NUR ---
pt denies abdominal pain. no nausea and vomiting noted. kept on npo
[2018-03-07] MEDS: SOD CHLORIDE 0.9% 1,000 ML IV SCH ×3 (07:42→20:10)
[2018-03-07 08:00] VITALS: BP 123/65; PULSE 84; RESP 18
[2018-03-07] MEDS: HYDROCHLOROTHIAZIDE 12.5 MG CAP PO SCH (09:06)
--- NOTE | 2018-03-07 14:08 | PN ---
Date/Time of Note Date/Time of Note DATE: 03/07/18 TIME: 14:06 Assessment/Plan Lines/Catheters IV Catheter Type (from Nrs): Peripheral IV Wise in Place (from Nrs): No Assessment/Plan Assessment/Plan Improving diverticulitis despite CT findings Patient has been afebrile and has a normal white count since admission. Abdominal pain improving. New antibiotics. Would not rescan unless clinically worsens Subjective 24 Hr Interval Summary Constitutional: other (Feeling better) Feeding: clear Pain Control: mild Exam/Review of Systems Vital Signs Vitals Vital Signs Date Temp Pulse Resp B/P (MAP) Pulse Ox O2 O2 Flow FiO2 Time Delivery Rate 03/07/18 98.6 84 18 123/65 96 08:00 (84) 03/06/18 Room Air 15:21 Intake and Output 03/06/18 03/06/18 03/07/18 1515:00 23:00 07:00 IntakeIntake Total 300 ml 1050 ml 900 ml BalanceBalance 300 ml 1050 ml 900 ml Exam Constitutional: alert, oriented, well developed Respiratory: clear to auscultation Cardiovascular: regular rate and rhythm Gastrointestinal: soft, other (Left lower quadrant tenderness) Results Free Text/Dictation Patient: KEVIN STORM : 1955 Age: 62 Sex: M MR #: [id number] DOS: 03/06/18 0700 Ordering MD: BUZZ KHAN MD Location: [facility] Room/Bed: [facility] PROCEDURE: CT Abdomen and Pelvis with contrast. CLINICAL INDICATION: Diverticulitis with microperforation. TECHNIQUE: CT scan of the abdomen and pelvis with contrast was performed on a multi-detector high-resolution CT scanner. The patient was scanned following the uncomplicated intravenous administration of 100 cc of Omnipaque 300 IV contrast. Coronal and sagittal reformatted images were obtained from the axial source images. DICOM images are available. CTDI equals 22.85 mGy, and DLP equals 1456.33 mGy-cm. One or more of the following dose reduction techniques were used: - Automated exposure control. - Adjustment of the mA and/or kV according to patient size. - Use of iterative reconstruction technique. COMPARISON: CT 03/04/2018 FINDINGS: Lower thorax: Bibasilar atelectasis. Liver: Normal. Patent portal vein. Biliary: Normal gallbladder. No biliary dilatation. Pancreas: Normal. Spleen: Normal. Adrenal Glands: Normal. Genitourinary: Benign appearing 1.4 cm cyst in the upper pole of right kidney. No hydronephrosis. Bladder is suboptimally distended and unremarkable. Gastrointestinal: Stomach is decompressed. Inflammatory changes involving left lower quadrant and left pelvis appears slightly progressed compared to 03/04/2018 CT with additional foci of extraluminal air and phlegmonous changes. There is associated reactive thickening of the adjacent peritoneum. Currently there is no definitive walled off fluid collection to suggest abscess. There is no definitive intraluminal abscess. There is moderate wall thickening and peripheral fat stranding of the adjacent short segment small bowel consistent with secondary enteritis. Lymph nodes: Normal. Vascular: Mildly calcified normal caliber abdominal aorta. Peritoneum/mesentery: As above. Reproductive organs: Normal. Musculoskeletal: Multilevel degenerative disc disease more prominent at the level of the L3-L4 and L4-L5. Abdominal wall: Normal IMPRESSION: 1. Slight progression of the inflammatory changes involving the left lower quadrant and left pelvis due to sigmoid diverticulitis. There is interval increase in phlegmonous changes with additional extraluminal air when comparing to earlier CT. Currently there is no definitive walled off intra-abdominal or intramural fluid collection to suggest abscess. 2. Moderate wall thickening and peripheral fat stranding of the adjacent short segment small bowel consistent with secondary enteritis. 3. No evidence of bowel obstruction with oral contrast travels to the distal rectosigmoid colon. RPTAT: QQ Physician Emerald Date Time Electronically viewed and signed by Physician Emerald on 03/06/2018 12:52 Result Diagram: 03/07/18 0609 03/07/18 0609 HERBER CARUSO MD Mar 07, 2018 14:08
[2018-03-07 14:42] VITALS: BP 133/64; PULSE 75; RESP 16
--- NOTE | 2018-03-07 18:56 | NUR ---
All needs met.no acute events.patient did not ask any pain medication today.he said''feel much better today,no abdominal pain''still he is npo.call light within reach.he is resting comfortably in bed.
[2018-03-07 20:00] VITALS: BP 130/69; PULSE 75; RESP 18
[2018-03-08 02:00] VITALS: BP 120/65; PULSE 63; RESP 18
--- NOTE | 2018-03-08 06:19 | NUR ---
No acute changes overnight. Vital signs remained stable, pt denies pain, SOB, or any discomfort. Pt stayed up most of the night watching television. All needs tended to. Will endorse plan of care to AM shift.
[2018-03-08] MEDS: PANTOPRAZOLE 40 MG INJ IV SCH (06:51)
[2018-03-08] MEDS: MEROPENEM 1 GM/50ML(PMX) 50 ML IVPB SCH ×3 (06:51→22:01)
[2018-03-08] MEDS: SOD CHLORIDE 0.9% 1,000 ML IV SCH ×2 (06:51→22:01)
[2018-03-08 08:02] VITALS: BP 124/59; PULSE 72; RESP 16
--- NOTE | 2018-03-08 08:27 | PN ---
Date/Time of Note Date/Time of Note DATE: 03/08/18 TIME: 08:27 Assessment/Plan VTE Prophylaxis Risk score (from Ns)>0 risk: 3 SCD applied (from [facility]): Yes Pharmacological prophylaxis: NA/contraindicated, other Pharm contraindication: low risk/ambulating Lines/Catheters IV Catheter Type (from [facility]): Peripheral IV Urinary Cath still in place: No Assessment/Plan Hospital Course SUBJECTIVE: Denies any abdominal pain at this time. OBJECTIVE: Physical Exam General: Obese, 62 year-old male lying in bed in no apparent distress. HEENT: Normocephalic, atraumatic. Eyes: Anicteric sclerae, conjunctivae clear. ENT: Nasal septum midline, oral mucosa moist. Neck supple, no JVD noticed. Respiratory: Bilaterally clear breath sounds. No use of accessory muscles of respiration. No adventitious breath sounds. Cardiovascular: S1, S2 heard. Regular rate and rhythm. Abdomen: Left lower quadrant tenderness. Bowel sounds positive in all 4 quadrants. Genitourinary: Deferred. Extremities: No cyanosis, no clubbing, no edema. Peripheral pulses palpable. Neurologic: Cranial nerves II through XII grossly intact. The patient is awake, alert, and oriented. Skin: Normal skin turgor. No skin rashes. Labs & Vitals per chart ASSESSMENT & PLAN 62-year-old male with comorbidities including hypertension and obesity who came to the emergency room with chief complaint of abdominal pain with CT scan of the abdomen and pelvis showing left lower quadrant diverticulitis with extra luminal gas bubbles compatible with microperforation. The patient was admitted to inpatient setting for further treatment and evaluation. 1. Acute diverticulitis with microperforation. -Continue antimicrobials including coverage for anaerobes. -Status post evaluation by general surgery. -Continue conservative management. 2. Essential hypertension. -Continue antihypertensives 3. Obesity. -BMI 36 kg/m. -Low calorie diet. 4. Fluids. -N.p.o. -Continue IV fluids. 5. DVT prophylaxis -Bilateral SCDs. 6. Plan. -Continue antibiotics. -Changed to carbapenem on 03/06/2018. -Continue pain control. -Continue n.p.o. -Plan is to discharge the patient home on IV antibiotics after initiating the patient on a diet as clinically appropriate. The patient was in collaboration with Dr. Sanchez. Plan of care was explained to the patient. Result Diagram: 03/08/18 0508 03/08/18 0508 Results 24hrs Laboratory Tests Test 03/08/18 05:08 White Blood Count 6.6 # Red Blood Count 4.51 L Hemoglobin 12.6 L Hematocrit 38.3 L Mean Corpuscular Volume 84.9 Mean Corpuscular Hemoglobin 27.9 L Mean Corpuscular Hemoglobin Concent 32.9 Red Cell Distribution Width 13.4 Platelet Count 191 Mean Platelet Volume 10.6 H Immature Granulocytes % 0.300 Neutrophils % 71.0 Lymphocytes % 18.1 Monocytes % 8.3 Eosinophils % 2.1 Basophils % 0.2 Nucleated Red Blood Cells % 0.0 Immature Granulocytes # 0.020 Neutrophils # 4.7 Lymphocytes # 1.2 Monocytes # 0.6 Eosinophils # 0.1 Basophils # 0.0 Nucleated Red Blood Cells # 0.0 Sodium Level 137 Potassium Level 3.9 Chloride Level 101 Carbon Dioxide Level 23 Anion Gap 13 Blood Urea Nitrogen 14 Creatinine 0.66 Est Glomerular Filtrat Rate mL/min > 60 Glucose Level 78 Calcium Level 9.0 Phosphorus Level 3.4 Magnesium Level 2.1 Exam/Review of Systems Vital Signs Vitals Vital Signs Date Temp Pulse Resp B/P (MAP) Pulse Ox O2 O2 Flow FiO2 Time Delivery Rate 03/08/18 98.1 72 16 124/59 95 08:02 (80) 03/06/18 Room Air 15:21 Intake and Output 03/07/18 03/07/18 03/08/18 1515:00 23:00 07:00 IntakeIntake Total 250 ml 1050 ml 900 ml BalanceBalance 250 ml 1050 ml 900 ml Medications Medications Current Medications IV Flush (NS 3 ml) 3 ml PER PROTOCOL IV ; Start 03/04/18 at 18:30 Ondansetron HCl (Zofran Inj) 4 mg Q6H PRN IV NAUSEA AND/OR VOMITING; Start 03/04/18 at 18:30 Acetaminophen/ Hydrocodone Bitart ([place] (5/325)) 1 tab Q6H PRN PO MODERATE PAIN LEVEL 4-6 Last administered on 03/06/18at 15:11; Admin Dose 1 TAB; Start 03/04/18 at 18:30 Morphine Sulfate (morphine) 2 mg Q4H PRN IV SEVERE PAIN LEVEL 7-10; Start 03/04/18 at 18:30 Lorazepam (Ativan) 0.5 mg Q6H PRN IV ANXIETY; Start 03/04/18 at 18:30 Sodium Chloride 1,000 ml @ 100 mls/hr Q10H IV Last administered on 03/08/18at 06:51; Admin Dose 100 MLS/HR; Start 03/04/18 at 18:14 Albuterol/ Ipratropium (Duoneb) 3 ml Q4H RESP THERAPY PRN HHN SHORTNESS OF BREATH; Start 03/04/18 at 18:30 Hydralazine HCl (Apresoline) 10 mg Q6H PRN IV ELEVATED BLOOD PRESSURE; Start 03/04/18 at 18:30 Hydrochlorothiazide (Hydrochlorothiazide) 12.5 mg DAILY PO Last administered on 03/07/18at 09:06; Admin Dose 12.5 MG; Start 03/05/18 at 09:00 Pantoprazole (Protonix Iv) 40 mg DAILY@06 IV Last administered on 03/08/18 06:51; Admin Dose 40 MG; Start 03/06/18 at 06:00 Meropenem/Sodium Chloride 50 ml @ 100 mls/hr Q8 IVPB Last administered on 03/08/18 06:51; Admin Dose 100 MLS/HR; Start 03/06/18 at 16:00 SHON BERRIOS NP Mar 08, 2018 08:27
[2018-03-08] MEDS: HYDROCHLOROTHIAZIDE 12.5 MG CAP PO SCH (09:24)
[2018-03-08 15:02] VITALS: BP 144/83; PULSE 83; RESP 16
--- NOTE | 2018-03-08 16:24 | NUR ---
RN NOTES Spoke with ER Charge nurse for midline insertion and was told that nobody is available to do it right now, referred to ICU, spoke with Oliver but as per Oliver Charge Nurse, Tana who is trained is also unavailable , referred again to Nikhil of PACU, spoke with Nikhil and said that he will try to do it later today.
--- NOTE | 2018-03-08 18:34 | NUR ---
RN NOTES No apparent change of status all throughout the shift. Patient remained alert and oriented, denies any pain upon each assessment. Spoke with GENERAL MERCHANDISE MANAGER Zaid, was made aware that patient's request to know when will the patient be able to eat. As per GENERAL MERCHANDISE MANAGER, since the patient has microperforation noted on the CT scan result , it is necessary for it to heal and then patient can start on a diet. verbalized understanding. Still awaiting for Midline placement. Will endorse to power and recovery shift engineer for continued follow up.
[2018-03-08 20:00] VITALS: BP 146/70; PULSE 69; RESP 18
--- NOTE | 2018-03-08 23:00 | NUR ---
pt for insertion of midline. charge nurse called for assistance but no available nurse to do the midline insertion. pt made aware. will endorse to dayshift nurse
[2018-03-09 02:00] VITALS: BP 134/68; PULSE 66; RESP 18
[2018-03-09] MEDS: PANTOPRAZOLE 40 MG INJ IV SCH (05:39)
[2018-03-09] MEDS: MEROPENEM 1 GM/50ML(PMX) 50 ML IVPB SCH ×3 (05:39→22:07)
--- NOTE | 2018-03-09 06:55 | NUR ---
kept on npo. no abdominal pain noted, no nausea and vomiting noted
[2018-03-09 07:55] VITALS: BP 138/79; PULSE 71; RESP 18
[2018-03-09] MEDS: SOD CHLORIDE 0.9% 1,000 ML IV SCH ×2 (08:14→08:56)
[2018-03-09] MEDS: HYDROCHLOROTHIAZIDE 12.5 MG CAP PO SCH (08:57)
--- NOTE | 2018-03-09 11:00 | NUR ---
SS Note: Consult Pt referred by RN regarding disability. The patient is a 62-year-old male admitted due to diverticulitis. SW met with pt to provide support, complete psychosocial assessment, and link pt to appropriate resources as needed. Pt awake, alert, and oriented x4. Pt was very pleasant and engaging with SW. Pt's spouse, Racquel Du, was at bedside. Pt agreed for spouse to be present during interview. Pt verbally appointed his daughter, Scott Du , as surrogate decision maker/spokesperson. Pt confirmed address on facesheet and stated he lives with his spouse. Pt is independent with ADL's and does not require DME. 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 Per pt, he has not been able to go to work since, Tuesday03/05/18 due to his medical condition and does not know when he will be able to return and is requesting temporary disability benefits. SW discussed and provided education regarding SDI. SW reviewed form with pt. SW notified Dr. Jasmine who agreed to complete form. Form placed in pt's chart for MD's completion.
--- NOTE | 2018-03-09 13:13 | PN ---
Date/Time of Note Date/Time of Note DATE: 03/09/18 TIME: 13:12 Assessment/Plan VTE Prophylaxis Risk score (from Ns)>0 risk: 3 SCD applied (from Ns): Yes Pharmacological prophylaxis: heparin Lines/Catheters IV Catheter Type (from [facility]): Peripheral IV Urinary Cath still in place: No Assessment/Plan Hospital Course 62 yo male with diverticulitis with perforation and possible phlegmon - Worsening radiographic appearnace but exam is benign and feels very well - Continue abx w merrem - Clear diet ok Result Diagram: 03/09/183 03/09/183 Results 24hrs Laboratory Tests Test 03/09/18 04:33 White Blood Count 7.0 Red Blood Count 4.81 Hemoglobin 13.3 L Hematocrit 40.4 L Mean Corpuscular Volume 84.0 Mean Corpuscular Hemoglobin 27.7 L Mean Corpuscular Hemoglobin Concent 32.9 Red Cell Distribution Width 13.4 Platelet Count 232 # Mean Platelet Volume 10.8 H Immature Granulocytes % 0.400 Neutrophils % 70.3 Lymphocytes % 17.2 Monocytes % 9.9 Eosinophils % 2.1 Basophils % 0.1 Nucleated Red Blood Cells % 0.0 Immature Granulocytes # 0.030 Neutrophils # 4.9 Lymphocytes # 1.2 Monocytes # 0.7 Eosinophils # 0.2 Basophils # 0.0 Nucleated Red Blood Cells # 0.0 Sodium Level 139 Potassium Level 4.1 Chloride Level 99 Carbon Dioxide Level 25 Anion Gap 15 H Blood Urea Nitrogen 13 Creatinine 0.69 Est Glomerular Filtrat Rate mL/min > 60 Glucose Level 76 Calcium Level 9.5 Phosphorus Level 3.5 Magnesium Level 2.1 Subjective 24 Hr Interval Summary Free Text/Dictation No abdominal pain whatsoever Wants to eat Having BM/flatus Exam/Review of Systems Exam Vitals Vital Signs Date Temp Pulse Resp B/P (MAP) Pulse Ox O2 O2 Flow FiO2 Time Delivery Rate 03/09/18 98.4 71 18 138/79 96 Room Air 07:55 (98) Intake and Output 03/08/18 03/08/18 03/09/18 1515:00 23:00 07:00 IntakeIntake Total 100 ml 1050 ml 750 ml BalanceBalance 100 ml 1050 ml 750 ml Constitutional: alert, oriented, well developed Psych: no complaints, nl mood/affect Head: normocephalic, atraumatic Eyes: nl conjunctiva, EOMI, nl lids, nl sclera, PERRL ENMT: nl external ears & nose, nl lips & teeth, nl nasal mucosa & septum Neck: supple, non-tender Respiratory: clear to auscultation, normal air movement Cardiovascular: regular rate and rhythm, nl pulses Gastrointestinal: soft, nl liver, spleen, non-tender Musculoskeletal: nl extremities to inspection, nl gait and stance Extremities: normal pulses Neurological: RESEARCH TECH II-XII intact, nl mental status, nl speech, nl strength Skin: nl turgor; No rash or lesions Lymph: nl lymph nodes Results Results 24hrs Laboratory Tests Test 03/09/18 04:33 White Blood Count 7.0 Red Blood Count 4.81 Hemoglobin 13.3 L Hematocrit 40.4 L Mean Corpuscular Volume 84.0 Mean Corpuscular Hemoglobin 27.7 L Mean Corpuscular Hemoglobin Concent 32.9 Red Cell Distribution Width 13.4 Platelet Count 232 # Mean Platelet Volume 10.8 H Immature Granulocytes % 0.400 Neutrophils % 70.3 Lymphocytes % 17.2 Monocytes % 9.9 Eosinophils % 2.1 Basophils % 0.1 Nucleated Red Blood Cells % 0.0 Immature Granulocytes # 0.030 Neutrophils # 4.9 Lymphocytes # 1.2 Monocytes # 0.7 Eosinophils # 0.2 Basophils # 0.0 Nucleated Red Blood Cells # 0.0 Sodium Level 139 Potassium Level 4.1 Chloride Level 99 Carbon Dioxide Level 25 Anion Gap 15 H Blood Urea Nitrogen 13 Creatinine 0.69 Est Glomerular Filtrat Rate mL/min > 60 Glucose Level 76 Calcium Level 9.5 Phosphorus Level 3.5 Magnesium Level 2.1 NICOLAS BACA MD Mar 09, 2018 13:13
[2018-03-09 13:53] VITALS: BP 150/76; PULSE 80; RESP 17
--- NOTE | 2018-03-09 15:37 | NUR ---
[employer] REQUESTING CUSTOMER'S ID, FAXED [employer]IGIBILITY TO SHEREEN MATT [phone] Addendum: 03/09/18 at 1539 by ALBA NORMAN CM Amended: Links added.
--- NOTE | 2018-03-09 16:18 | NUR ---
RN Notes: Patient remains alert and oriented, ambulatory with steady gait, afebrile, no sob noted. DR. Jasmine started pt on clear liquid diet at lunch tolerated well, denies abdominal pain, no n/v noted. GARIMA Rosado from [facility] made aware regarding Midline insertion and said he will try to come to our unit before the end of his shift to inert the Midline. Hourly rounding done, call light within reach. Needs attended. Will continue to monitor until the end of the shift. Addendum: 03/09/18 at 1654 by NOAH GRIFFITH RN Around 1610 pt c/o itchiness on his back upon assessment noted with pinpoint skin rash on his upper torso, upper and lower back, per pt he noticed this rashes yesterday but after shower today at 1600 he feel itchy and trying to scratch the rashes. Dr. Jasmine made aware. Will continue to monitor and will endorse for continuity of care. Addendum: 03/09/18 at 1747 by NOAH GRIFFITH RN per Dr. Jasmine pt's pinpoint skin rash probably from the sheet, laundry made aware and will provide special sheet to the pt. Pt verbalized relief said no itchiness at this time, pinpoint skin rash still visible, skin intact. Kept clean and comfortable.
[2018-03-09 20:30] VITALS: BP 153/73; PULSE 71; RESP 18
[2018-03-09] MEDS: HYDROCODONE/APAP (5/325) TAB PO PRN (22:06)
[2018-03-10 02:30] VITALS: BP 137/71; PULSE 64; RESP 18
[2018-03-10] MEDS: MEROPENEM 1 GM/50ML(PMX) 50 ML IVPB SCH ×2 (05:32→13:55)
[2018-03-10] MEDS: PANTOPRAZOLE 40 MG INJ IV SCH (05:32)
--- NOTE | 2018-03-10 06:26 | NUR ---
No acute changes noted during my shift. Vital signs remained stable. Pt to get midline, no midline nurse was available during my shift, will endorse to next shift. Antibiotics administered as ordered. Pt has no complaints of abdominal discomfort with the clear liquid diet. Pt currently resting in his bed comfortably, denies SOB. Will continue to monitor.
[2018-03-10] MEDS: HYDROCHLOROTHIAZIDE 12.5 MG CAP PO SCH (08:22)
[2018-03-10 08:36] VITALS: BP 134/78; PULSE 66; RESP 18
[2018-03-10] MEDS ORDERED: METR500T PO (14:17)
[2018-03-10] MEDS ORDERED: SULF1TAB31 PO (14:17)
--- NOTE | 2018-03-10 14:18 | PDOCDIS ---
Discharge Instructions DIAGNOSIS Discharge Diagnosis Diverticulitis CONDITION [id number] Patient Condition: [id number] Stable FOLLOW UP/APPOINTMENTS Follow-up Plan Take your antibiotics as prescribed. It is vitally important that you not skip a dose If you have any worsening of your abdominal pain, fevers, or other concerning symptoms, return to the emergency room NICOLAS NIEVES MD Mar 10, 2018 14:18
--- NOTE | 2018-03-10 14:24 | DS ---
Date/Time of Note Date/Time of Note DATE: 03/10/18 TIME: 14:19 Discharge Summary Admission/Discharge Info Admit Date/Time Mar 04, 2018 at 17:24 Discharge Date/Time Discharge Diagnosis Diverticulitis Patient Condition: Stable Hospital Course 62 yo male with h/o diverticulitis presented with abdominal pain. He had recently completed levaquin/flagyl course. Still with symptoms. CT showed diverticulitis with microperforation and phlegmon. He was evaluated by general surgery who declined intervention. He was treated wtih IV merrem. His symptoms improved markedly. He tolerated PO. Repeat CT showed continued inflammatory changes but his exam was entirely benign and he was asymtpomatic. Given his improvement, he was discharged on Bactrim DS and flagyl x 1 more week. He was advised to return to the emergency room avel if any symptoms recur. Home Meds Reported Medications Olmesartan/Hydrochlorothiazide (Olmesartan-Hctz 40-12.5 mg Tab) 1 Each Tablet, 1 TAB PO DAILY 03/04/18 Nifedipine* (Nifedipine ER*) 30 Mg Tablet.sa, 30 MG PO DAILY 03/04/18 Follow-up Plan Take your antibiotics as prescribed. It is vitally important that you not skip a dose If you have any worsening of your abdominal pain, fevers, or other concerning symptoms, return to the emergency room [facility] Primary Care Provider Care Physician No Primary Pending Labs Laboratory Tests Test 03/10/18 04:39 White Blood Count 6.2 10^3/ul (4.8-10.8) Red Blood Count 4.69 10^6/ul (4.70-6.10) Hemoglobin 12.9 g/dl (14.0-18.0) Hematocrit 38.5 % (42.0-52.0) Mean Corpuscular Volume 82.1 fl (82.0-101.0) Mean Corpuscular Hemoglobin 27.5 pg (29.0-33.0) Mean Corpuscular Hemoglobin Concent 33.5 g/dl (32.0-37.0) Red Cell Distribution Width 13.4 % (11.5-14.5) Platelet Count 223 10^3/UL (140-415) Mean Platelet Volume 10.2 fl (7.4-10.4) Immature Granulocytes % 0.300 % (0.001-0.429) Neutrophils % 62.9 % (39.0-77.0) Lymphocytes % 22.7 % (15.0-51.0) Monocytes % 10.9 % (0.0-11.0) Eosinophils % 2.9 % (0.0-7.0) Basophils % 0.3 % (0.0-2.0) Nucleated Red Blood Cells % 0.0 /100WBC (0.0-0.0) Immature Granulocytes # 0.020 10^3/ul (0.0-0.031) Neutrophils # 3.9 10^3/ul (1.6-7.5) Lymphocytes # 1.4 10^3/ul (0.8-2.9) Monocytes # 0.7 10^3/ul (0.3-0.9) Eosinophils # 0.2 10^3/ul (0.0-0.5) Basophils # 0.0 10^3/ul (0.0-0.1) Nucleated Red Blood Cells # 0.0 10^3/ul (0.0-0.0) Sodium Level 138 mmol/L (135-144) Potassium Level 3.6 mmol/L (3.5-5.1) Chloride Level 97 mmol/L (97-110) Carbon Dioxide Level 28 mmol/L (21-31) Anion Gap 13 (5-13) Blood Urea Nitrogen 10 mg/dl (7-20) Creatinine 0.61 mg/dl (0.61-1.24) Est Glomerular Filtrat Rate mL/min > 60 mL/min (>60) Glucose Level 96 mg/dl (70-220) Calcium Level 9.6 mg/dl (8.4-10.2) NICOLAS BACA MD Mar 10, 2018 14:24
[2018-03-10 14:25] VITALS: BP 123/65; PULSE 74; RESP 18
--- NOTE | 2018-03-10 15:28 | NUR ---
RN Notes: Dr. Jasmine medically cleared pt to go home with discharge order after Meropenem administered. Pt aware regarding discharge. Pt remains alert and oriented, ambulatory with steady gait, afebrile, breathing even and unlabored, no acute distress noted, denies abdominal pain, no n/v noted. Dr. Jasmine did E-Prescription to [facility] pharmacy as per pt's pharmacy choice, called [facility] and verified prescription and said they received them. Will give discharge instruction once IV antibiotic completed. Addendum: 03/10/18 at 1551 by NOAH GRIFFITH RN Per Pt he want to try full liquid diet first prior discharge once he tolerated it he will go home after dinner. Dr. Jasmine made aware and per that's ok.
--- NOTE | 2018-03-10 18:10 | NUR ---
RN Notes: Discharge instruction provided and reeducated regarding taking antibiotics as prescribed, it is vitally important not to skip a dose. If have any worsening of abdominal pain, fevers, or other concerning symptoms, return to the emergency room [facility], pt verbalized understanding, signed all discharge paperwork and belonging list. Also gave to pt his Disability Form and letter from his work. Per pt [facility] pharmacy already called him and his prescription was ready for picker. Pt remains alert and oriented, able to tolerated full liquid diet, denies abdominal pain, no n/v noted. No acute distress noted. IV line removed tip intact covered with dry dressing. Called volunteer to helped pt in the lobby. Pt left the unit in stable condition accompanied by his with all his belonging and paperwork. Thankful for the care provided.
== END 2018-03-10 18:19 | disposition home or self-care (01) | DRG 392 ==
LOC: E/R 14:55 → PP2 17:24
PROVIDERS: ADMIT Hospitalist; ATTEND Internal Medicine
DX: K57.20 Diverticulitis of large intestine with perforation and abscess without bleeding (principal); E66.9 Obesity, unspecified; I10 Essential (primary) hypertension; Z68.36 Body mass index [BMI] 36.0-36.9, adult
CPT/HCPCS: 36415; 74176; 74177; 80048; 80053; 80061; 83036; 83690; 83735; 84100; 84439; 84443; 85025; 85610; 85730; 96361; 96374; 96375; 97161; C9113; J1885; J2185; J2405; J2543; J7030; Q9967